=== PATIENT | female | born 1940 | race Caucasian/White ===

== ENCOUNTER 2016-04-24 03:20 | Emergency (ER) | payer OTHER ==
[~2016-04-24] VITALS: Ht 154.9 cm; Wt 86.0 kg
[~2016-04-24 03:20] MED LIST: AMBIEN10 MG PO; AMBIEN5 MG PO; AMITRIPTYLINE100 MG PO; APRESOLINE50 MG PO; ASCORBIC ACID500 M3 PO; ASPIR 8181 M1 PO; ASPIRIN81 M2 PO; Ambien PO; Ascorbic Acid,Ester- PO; BACTROBAN CREAM15 GM TP; BISACODYL SUPP10 MG PR; BRILINTA90 MG PO; CARVEDILOL12.5 MG PO; CARVEDILOL6.25 MG PO; CRANBERRY 12,61 EACH PO; CRANBERRY500 M2 PO; Colace PO; Coreg PO; Cozaar PO; Diabeta,Micronase PO; DuoNeb IH; ENDOCET 5-3251 EACH PO; Ecotrin PO; Elavil PO; FOLIC ACID1 MG PO; FUROSEMIDE40 MG PO; Flovent 44 mcg IH; GLUCOPHAGE500 MG PO; GLUCOVANCE 51 TABLET PO; Glucophage PO; HYDROCODON-ACE1 EAC7 PO; LANTUS 3 M100 UNITS/ SC; LEVEMIR FL100 UNIT/1 SC; LEVEMIR FL100 UNITS/ SC; LEVEMIR100 UNIT/2 SC; LEVOTHYROXINE50 MCG PO; LIPITOR20 MG PO; LOSARTAN-HCTZ1 EAC1 PO; Levothroid,Synthroid PO; MAG-OXIDE400 MG PO; MELATONIN3 MG PO; Maalox, Mylanta PO; NITROSTAT0.4 MG SL; NORCO 5/3251 TABLET PO; NORVASC5 MG PO; NOVOLOG 10100 UNITS/ SC; NOVOLOG PE100 UNITS/ SC; OMEPRAZOLE20 MG PO; ONE-A-DAY ESSE1 EAC1 PO; OXYCODONE HCL10 MG PO; OxyCONTIN PO; PERCOCET 5/31 TABLET PO; PLAVIX75 MG PO; PRAVACHOL40 MG PO; PRAVASTATIN SOD40 MG PO; PRILOSEC20 MG PO; Percocet 5/325,Endoc PO; Pravachol PO; PriLOSEC PO; Protonix PO; REGLAN10 MG PO; Reglan PO; SALINE FLUSH 5 M5 ML IV; SENNA-TIME S T1 EACH PO; SORE THROAT SP177 M1 MM; SPECTAZOLE TP; STOOL SOFTENER100 MG PO; STOOL SOFTENER50 MG PO; SYMBICORT60 INHALA1 IH; THERAGRAN1 TABLET PO; TYLENOL EXTRA500 MG PO; TYLENOL REGULA325 MG PO; Tylenol Extra Streng PO; VITAMIN C500 M1 PO; Vasotec PO; Zofran IV
[2016-04-24] MEDS ORDERED: ROXICODONE5 MG PO (04:22)
[2016-04-24] MEDS ORDERED: LETROZOLE2.5 MG PO (04:22)
[2016-04-24] MEDS ORDERED: TYLENOL PM1 CAPLET PO (04:22)
[2016-04-24 04:25] LABS: HEMATOCRIT 32.8 % (36.0-46.0); MCH 29.2 PG (29.0-34.0); MCHC 33.2 G/DL (30.0-36.0); MCV 87.9 FL (83-99); MEAN PLAT.VOLUME 10.9 uM^3 (9.5-12.4); PLATELET COUNT 159 K/uL (156-360); RED BLOOD COUNT 3.73 M/uL (3.80-5.20); WHITE BLOOD COUNT 8.3 K/uL (4.1-10.2)
[2016-04-24 04:36] LABS: CHLORIDE 102 mEq/L (99-109); POTASSIUM 4.7 mEq/L (3.7-5.4); SODIUM 135 mEq/L (136-147)
[2016-04-24 04:38] LABS: GLUCOSE 99 mg/dL (70-99)
[2016-04-24 04:40] LABS: ANION GAP 12 MEQ/L (2-14)
[2016-04-24 04:42] LABS: GFR ESTIMATE (CALCULATED) 51 mL/min/
[2016-04-24 04:43] LABS: UREA NITROGEN (BUN) 28 mg/dL (9-23)
[2016-04-24 05:21] VITALS: BP 145/63
[2016-04-24 05:48] LABS: POINT-OF-CARE METER ID UU13113747; POINT-OF-CARE USER ID HMLKAV
== END 2016-04-24 05:30 | disposition home or self-care (01) ==
LOC: EME → EDBD 03:20 → EME 03:20
PROVIDERS: Emergency Medicine
DX: T38.3X1A Poisoning by insulin and oral hypoglycemic [antidiabetic] drugs, accidental (unintentional), initial encounter (principal); E11.649 Type 2 diabetes mellitus with hypoglycemia without coma; E87.1 Hypo-osmolality and hyponatremia; E78.5 Hyperlipidemia, unspecified; I25.2 Old myocardial infarction; Z98.61 Coronary angioplasty status; J44.9 Chronic obstructive pulmonary disease, unspecified; Z89.512 Acquired absence of left leg below knee; Z87.891 Personal history of nicotine dependence; Z79.4 Long term (current) use of insulin; Z79.82 Long term (current) use of aspirin; Z79.84 Long term (current) use of oral hypoglycemic drugs
CPT/HCPCS: 80048; 82948; 85027; 99281; 99285

== ENCOUNTER 2016-05-05 13:19 | Emergency (ER) | payer OTHER ==
[~2016-05-05] VITALS: Ht 157.5 cm; Wt 84.0 kg
[~2016-05-05 13:19] MED LIST changes: +LETROZOLE2.5 MG PO; +ROXICODONE5 MG PO; +TYLENOL PM1 CAPLET PO
[2016-05-05 13:55] LABS: CHLORIDE 104 mEq/L (99-109); POTASSIUM 5.1 mEq/L (3.7-5.4); SODIUM 134 mEq/L (136-147)
[2016-05-05 13:57] LABS: GLUCOSE 91 mg/dL (70-99); HEMATOCRIT 30.3 % (36.0-46.0); MCH 29.2 PG (29.0-34.0); MCV 88.3 FL (83-99); MEAN PLAT.VOLUME 10.3 uM^3 (9.5-12.4); PLATELET COUNT 215 K/uL (156-360); RBC DIS.WIDTH-CV 13.3 % (11.8-14.6); RBC DIS.WIDTH-SD 41.1 % (39-53); RED BLOOD COUNT 3.43 M/uL (3.80-5.20); WHITE BLOOD COUNT 12.8 K/uL (4.1-10.2)
[2016-05-05 13:59] LABS: ANION GAP 8 MEQ/L (2-14)
[2016-05-05 14:01] LABS: GFR ESTIMATE (CALCULATED) 39 mL/min/
[2016-05-05 14:02] LABS: UREA NITROGEN (BUN) 36 mg/dL (9-23)
[2016-05-05 14:05] LABS: POINT-OF-CARE METER ID UU14100415
[2016-05-05 15:11] LABS: POINT-OF-CARE METER ID UU14100415
[2016-05-05 16:34] LABS: POINT-OF-CARE METER ID UU14100415
[2016-05-05] MEDS ORDERED: LEVOFLOXACIN750 MG PO (17:15)
[2016-05-05 17:21] VITALS: BP 105/86
== END 2016-05-05 17:28 | disposition home or self-care (01) ==
LOC: EME 13:19
PROVIDERS: Emergency Medicine
DX: E11.649 Type 2 diabetes mellitus with hypoglycemia without coma (principal); J18.9 Pneumonia, unspecified organism; E78.5 Hyperlipidemia, unspecified; I25.2 Old myocardial infarction; Z98.61 Coronary angioplasty status; Z79.82 Long term (current) use of aspirin; Z79.4 Long term (current) use of insulin; Z87.891 Personal history of nicotine dependence
CPT/HCPCS: 71020; 80048; 82948; 85027; 99281; 99285

== ENCOUNTER 2016-08-23 23:16 | Emergency (ER) | payer OTHER ==
[~2016-08-23] VITALS: Ht 157.5 cm; Wt 74.1 kg
[~2016-08-23 23:16] MED LIST changes: +LEVOFLOXACIN750 MG PO
[2016-08-23 23:50] LABS: EOSINOPHIL (%) 2.6 % (0-5); EOSINOPHIL COUNT 0.4 K/uL (0-0.3); HEMATOCRIT 33.3 % (36.0-46.0); IMMATURE GRANULOCYTE (%) 0.9 % (0.0-0.7); IMMATURE GRANULOCYTE COUNT 0.1 K/uL; INSTRUMENT ABS NEUTROPHIL CT 10.5 K/uL; MCH 26.8 PG (29.0-34.0); MCHC 30.9 G/DL (30.0-36.0); MCV 86.7 FL (83-99); MEAN PLAT.VOLUME 10.2 uM^3 (9.5-12.4); MONOCYTE (%) 4.7 % (3-12); MONOCYTE COUNT 0.6 K/uL (0-0.8); NEUTROPHIL (%) 76.8 % (45-76); NEUTROPHIL COUNT 10.5 K/uL (1.8-6.4); PLATELET COUNT 251 K/uL (156-360); RBC DIS.WIDTH-CV 13.9 % (11.8-14.6); RBC DIS.WIDTH-SD 44.3 % (39-53); RED BLOOD COUNT 3.84 M/uL (3.80-5.20); WHITE BLOOD COUNT 13.7 K/uL (4.1-10.2)
[2016-08-23 23:58] LABS: CHLORIDE 106 mEq/L (99-109); POTASSIUM 4.6 mEq/L (3.7-5.4); SODIUM 140 mEq/L (136-147)
[2016-08-24] LABS: GLUCOSE 152 mg/dL (70-99)
[2016-08-24 00:01] LABS: ANION GAP 10 MEQ/L (2-14)
[2016-08-24 00:04] LABS: GFR ESTIMATE (CALCULATED) 39 mL/min/; UREA NITROGEN (BUN) 31 mg/dL (9-23)
[2016-08-24 00:07] LABS: ADD MIUA? YES; BILIRUBIN NEGATIVE; BLOOD NEGATIVE; COLOR AMBER ((YELLOW)); GLUCOSE (STRIP) 50; KETONES NEGATIVE; LEUKOCYTES SMALL; NITRITE NEGATIVE; PROTEIN (STRIP) 30; SPECIFIC GRAVITY 1.023 (1.000-1.030); UROBILINOGEN 0.2 MG/DL (0.2-1.0)
[2016-08-24 00:11] LABS: TROP-I INTERPRETATION NEGATIVE; TROPONIN-I < 0.01 ng/mL (0.0-0.30)
[2016-08-24 00:22] LABS: BACTERIA 1+ /HPF; CASTS PRESENT /LPF; CRYSTALS PRESENT; EPITHELIAL CELLS 2+ /HPF; HYALINE CASTS 0-5 /LPF; MUCUS NONE SEEN /LPF; RED BLOOD CELLS NONE SEEN /HPF (0-5); UCUL ADDED? NO; WHITE BLOOD CELLS 0-5 /HPF (0-5)
[2016-08-24 00:23] LABS: AMORPHOUS URATES CRYSTALS 3+
[2016-08-24 00:44] VITALS: BP 108/57
== END 2016-08-24 00:47 | disposition home or self-care (01) ==
LOC: EME → EDBD 23:16 → EME 08-24 00:47
PROVIDERS: Emergency Medicine
DX: R55 Syncope and collapse (principal); E11.9 Type 2 diabetes mellitus without complications; I10 Essential (primary) hypertension; E78.5 Hyperlipidemia, unspecified; I25.2 Old myocardial infarction; Z89.512 Acquired absence of left leg below knee; Z95.5 Presence of coronary angioplasty implant and graft; Z88.2 Allergy status to sulfonamides; Z88.0 Allergy status to penicillin; Z87.891 Personal history of nicotine dependence; Z79.84 Long term (current) use of oral hypoglycemic drugs; K21.9 Gastro-esophageal reflux disease without esophagitis; F41.9 Anxiety disorder, unspecified
CPT/HCPCS: 80048; 81003; 84484; 85025; 93005; 99281; 99285; J7040

== ENCOUNTER 2016-11-23 00:40 | Inpatient (IN) | payer OTHER ==
[2016-11-23] VITALS (13 sets, daily range): BP systolic 131–178; BP diastolic 70–101
[~2016-11-23] VITALS: Ht 157.5 cm; Wt 76.0 kg
[~2016-11-23 00:40] MED LIST changes: +ACETAMINOPHEN1 EAC4 PO; -ASPIRIN81 M2 PO; -CRANBERRY 12,61 EACH PO; +CRANBERRY PLUS1 EAC1 PO; +LO-DOSE ASPIRIN81 M2 PO; -MELATONIN3 MG PO; +MELATONIN5 M1 PO; -TYLENOL PM1 CAPLET PO
[2016-11-23 01:01] LABS: POINT-OF-CARE METER ID UU13113747; POINT-OF-CARE USER ID 515033160
[2016-11-23 01:44] LABS: HEMATOCRIT 31.3 % (36.0-46.0); MCH 24.9 PG (29.0-34.0); MCV 80.3 FL (83-99); MEAN PLAT.VOLUME 11.2 uM^3 (9.5-12.4); NRBC (%) 0.2 /100 WBC (0-0); PLATELET COUNT 221 K/uL (156-360); RBC DIS.WIDTH-CV 14.2 % (11.8-14.6); RBC DIS.WIDTH-SD 41.4 % (39-53); WHITE BLOOD COUNT 8.1 K/uL (4.1-10.2)
[2016-11-23 01:56] LABS: CHLORIDE 99 mEq/L (99-109); POTASSIUM 4.4 mEq/L (3.7-5.4); SODIUM 135 mEq/L (136-147)
[2016-11-23 01:57] LABS: GLUCOSE 56 mg/dL (70-99)
[2016-11-23 01:59] LABS: ANION GAP 11 MEQ/L (2-14)
[2016-11-23 02:01] LABS: GFR ESTIMATE (CALCULATED) 57 mL/min/
[2016-11-23 02:02] LABS: UREA NITROGEN (BUN) 20 mg/dL (9-23)
[2016-11-23 02:40] LABS: POINT-OF-CARE METER ID UU13113747; POINT-OF-CARE USER ID HMLKAV
[2016-11-23 03:02] LABS: POINT-OF-CARE METER ID UU13113747; POINT-OF-CARE USER ID HMLKAV
[2016-11-23] MEDS ORDERED: AMBIEN10 MG PO (03:52)
[2016-11-23 04:32] LABS: POINT-OF-CARE METER ID UU13113747; POINT-OF-CARE USER ID HMLKAV
[2016-11-23 04:36] LABS: ADD MIUA? YES; BILIRUBIN NEGATIVE; BLOOD NEGATIVE; COLOR YELLOW ((YELLOW)); GLUCOSE (STRIP) 50; KETONES NEGATIVE; LEUKOCYTES MODERATE; NITRITE NEGATIVE; PROTEIN (STRIP) NEGATIVE; SPECIFIC GRAVITY 1.009 (1.000-1.030); UROBILINOGEN 0.2 MG/DL (0.2-1.0)
[2016-11-23 04:51] LABS: TROP-I INTERPRETATION NEGATIVE; TROPONIN-I 0.02 ng/mL (0.0-0.30)
[2016-11-23 04:55] LABS: BACTERIA RARE /HPF; EPITHELIAL CELLS RARE /HPF; MUCUS NONE SEEN /LPF; RED BLOOD CELLS 0-5 /HPF (0-5); UCUL ADDED? YES; WHITE BLOOD CELLS 20-30 /HPF (0-5)
[2016-11-23 06:21] LABS: POINT-OF-CARE METER ID UU13113747; POINT-OF-CARE USER ID HMLKAV
[2016-11-23 07:46] LABS: POINT-OF-CARE METER ID UU13113747
[2016-11-23 07:51] LABS: Estimated Average Glucose 160 mg/dL (70-123); HEMOGLOBIN A1c (GLYCOHEMOGLOB) 7.2 % HGB (Below 5.7)
[2016-11-23 08:40] LABS: POINT-OF-CARE METER ID UU14208751
[2016-11-23 09:42] LABS: METH RESISTANT S AUREUS PCR NEGATIVE (NEGATIVE); PROBE CHECK PASS; SPECIMEN PROCESSING CONTROL PASS
[2016-11-23 09:59] LABS: TROP-I INTERPRETATION NEGATIVE; TROPONIN-I 0.02 ng/mL (0.0-0.30)
[2016-11-23 10:41] LABS: POINT-OF-CARE METER ID UU13113748
[2016-11-23 12:51] LABS: POINT-OF-CARE METER ID UU14208751
[2016-11-23 14:37] LABS: POINT-OF-CARE METER ID UU14208751
[2016-11-23 15:07] LABS: TROP-I INTERPRETATION NEGATIVE; TROPONIN-I 0.01 ng/mL (0.0-0.30)
[2016-11-23 16:31] LABS: POINT-OF-CARE METER ID UU13113731
[2016-11-23 18:55] LABS: POINT-OF-CARE METER ID UU14208751; POINT-OF-CARE USER ID 606021424
[2016-11-23 20:17] LABS: POINT-OF-CARE METER ID UU13113748
[2016-11-23 22:09] LABS: POINT-OF-CARE METER ID UU13113748
[2016-11-24] VITALS (7 sets, daily range): BP systolic 112–141; BP diastolic 49–76
[2016-11-24 00:19] LABS: POINT-OF-CARE METER ID UU13113748
[2016-11-24 02:19] LABS: POINT-OF-CARE METER ID UU14174217
[2016-11-24 04:21] LABS: POINT-OF-CARE METER ID UU14174217
[2016-11-24 06:02] LABS: POINT-OF-CARE METER ID UU13113748
[2016-11-24 06:12] LABS: HEMATOCRIT 26.2 % (36.0-46.0); MCH 25.1 PG (29.0-34.0); MCHC 31.3 G/DL (30.0-36.0); MCV 80.1 FL (83-99); MEAN PLAT.VOLUME 11.4 uM^3 (9.5-12.4); PLATELET COUNT 219 K/uL (156-360); RBC DIS.WIDTH-SD 41.1 % (39-53); RED BLOOD COUNT 3.27 M/uL (3.80-5.20); WHITE BLOOD COUNT 7.3 K/uL (4.1-10.2)
[2016-11-24 06:33] LABS: ANION GAP 8 MEQ/L (2-14); CHLORIDE 101 MEQ/L (99-109); GFR ESTIMATE (CALCULATED) 51 mL/min/; GLUCOSE 150 mg/dL (70-99); POTASSIUM 4.9 MEQ/L (3.7-5.4); SAMPLE HEMOLYSIS CHECK 0; SAMPLE ICTERIC CHECK 0; SAMPLE LIPEMIA CHECK 0; SODIUM 135 MEQ/L (136-147); UREA NITROGEN (BUN) 20 mg/dL (9-23)
[2016-11-24 11:46] LABS: POINT-OF-CARE METER ID UU14208750
[2016-11-24 16:32] LABS: POINT-OF-CARE METER ID UU14162508
[2016-11-24 21:49] LABS: POINT-OF-CARE METER ID UU14208750
[2016-11-25] VITALS (8 sets, daily range): BP systolic 117–157; BP diastolic 57–78
[2016-11-25 06:19] LABS: POINT-OF-CARE METER ID UU14162508
[2016-11-25 06:28] LABS: HEMATOCRIT 26.2 % (36.0-46.0); MCH 24.9 PG (29.0-34.0); MCHC 30.9 G/DL (30.0-36.0); MCV 80.6 FL (83-99); MEAN PLAT.VOLUME 11.1 uM^3 (9.5-12.4); PLATELET COUNT 201 K/uL (156-360); RBC DIS.WIDTH-CV 14.2 % (11.8-14.6); RBC DIS.WIDTH-SD 41.5 % (39-53); RED BLOOD COUNT 3.25 M/uL (3.80-5.20); WHITE BLOOD COUNT 6.4 K/uL (4.1-10.2)
[2016-11-25 06:56] LABS: ANION GAP 7 MEQ/L (2-14); CHLORIDE 102 MEQ/L (99-109); GFR ESTIMATE (CALCULATED) 46 mL/min/; GLUCOSE 126 mg/dL (70-99); SAMPLE HEMOLYSIS CHECK 0; SAMPLE ICTERIC CHECK 0; SAMPLE LIPEMIA CHECK 0; SODIUM 138 MEQ/L (136-147); UREA NITROGEN (BUN) 23 mg/dL (9-23)
[2016-11-25 06:58] LABS: MAGNESIUM 2.4 mg/dl (1.3-2.7)
[2016-11-25 11:58] LABS: POINT-OF-CARE METER ID UU14162508
[2016-11-25 12:39] LABS: FERRITIN 22 NG/ML (10-291); IRON 34 MCG/DL (35-150); LACTATE DEHYDROGENASE 146 IU/L (20-246)
[2016-11-25 13:26] LABS: RETIC HGB EQUIVALENT 27.1 (28-36); RETICULOCYTE COUNT 1.8 % (0.5-1.8)
[2016-11-25 16:45] LABS: POINT-OF-CARE METER ID UU14162508
[2016-11-25 21:48] LABS: POINT-OF-CARE METER ID UU14208750
[2016-11-26 04:03] VITALS: BP 115/77
[2016-11-26 06:37] LABS: POINT-OF-CARE METER ID UU14208750
[2016-11-26 07:57] VITALS: BP 147/67
[2016-11-26 08:00] LABS: EOSINOPHIL (%) 5.6 % (0-5); EOSINOPHIL COUNT 0.4 K/uL (0-0.3); HEMATOCRIT 27.7 % (36.0-46.0); IMMATURE GRANULOCYTE (%) 0.6 % (0.0-0.7); IMMATURE GRANULOCYTE COUNT 0.1 K/uL; INSTRUMENT ABS NEUTROPHIL CT 4.5 K/uL; MCH 25.8 PG (29.0-34.0); MCHC 31.8 G/DL (30.0-36.0); MCV 81.2 FL (83-99); MEAN PLAT.VOLUME 11.3 uM^3 (9.5-12.4); MONOCYTE (%) 10.7 % (3-12); MONOCYTE COUNT 0.9 K/uL (0-0.8); NEUTROPHIL (%) 57.1 % (45-76); NEUTROPHIL COUNT 4.5 K/uL (1.8-6.4); NRBC (%) 0.5 /100 WBC (0-0); PLATELET COUNT 209 K/uL (156-360); RBC DIS.WIDTH-CV 14.3 % (11.8-14.6); RBC DIS.WIDTH-SD 42.3 % (39-53); RED BLOOD COUNT 3.41 M/uL (3.80-5.20); WHITE BLOOD COUNT 7.9 K/uL (4.1-10.2)
[2016-11-26 08:31] LABS: ANION GAP 8 MEQ/L (2-14); CHLORIDE 99 MEQ/L (99-109); GFR ESTIMATE (CALCULATED) 46 mL/min/; GLUCOSE 158 mg/dL (70-99); POTASSIUM 5.2 MEQ/L (3.7-5.4); SAMPLE HEMOLYSIS CHECK 0; SAMPLE ICTERIC CHECK 0; SAMPLE LIPEMIA CHECK 0; SODIUM 135 MEQ/L (136-147); UREA NITROGEN (BUN) 22 mg/dL (9-23)
[2016-11-26 11:05] VITALS: BP 118/58
[2016-11-26] MEDS ORDERED: FERROUS SULFAT325 MG PO (11:20)
[2016-11-26] MEDS ORDERED: CYANOCOBALAM1000 MCG PO (11:20)
[2016-11-26 12:08] LABS: POINT-OF-CARE METER ID UU14208750
== END 2016-11-26 14:29 | disposition home health service (06) | DRG 639 ==
LOC: EME → EDBD 00:40 → EDOF 03:10 → 4WEST 03:10 → ENRESERV 03:18 → 4WEST 07:59 → ENRESERV 11-24 07:59 → CANRESERV 11-24 07:59 → ENRESERV 11-24 09:01 → 2EAST 11-24 11:13
PROVIDERS: Emergency Medicine; Internal Medicine; Physician Assistant Medical
DX: E11.649 Type 2 diabetes mellitus with hypoglycemia without coma (principal); R94.31 Abnormal electrocardiogram [ECG] [EKG]; D63.8 Anemia in other chronic diseases classified elsewhere; E11.319 Type 2 diabetes mellitus with unspecified diabetic retinopathy without macular edema; E11.40 Type 2 diabetes mellitus with diabetic neuropathy, unspecified; I10 Essential (primary) hypertension; I25.10 Atherosclerotic heart disease of native coronary artery without angina pectoris; I25.5 Ischemic cardiomyopathy; R26.2 Difficulty in walking, not elsewhere classified; K21.9 Gastro-esophageal reflux disease without esophagitis; E78.5 Hyperlipidemia, unspecified; E03.9 Hypothyroidism, unspecified; I73.9 Peripheral vascular disease, unspecified; E66.9 Obesity, unspecified; Z68.30 Body mass index [BMI] 30.0-30.9, adult; I25.2 Old myocardial infarction; Z79.4 Long term (current) use of insulin; Z79.84 Long term (current) use of oral hypoglycemic drugs; Z79.51 Long term (current) use of inhaled steroids; Z79.02 Long term (current) use of antithrombotics/antiplatelets; Z79.82 Long term (current) use of aspirin; Z87.891 Personal history of nicotine dependence; Z85.3 Personal history of malignant neoplasm of breast; Z89.512 Acquired absence of left leg below knee; Z95.5 Presence of coronary angioplasty implant and graft; Z82.49 Family history of ischemic heart disease and other diseases of the circulatory system; F41.9 Anxiety disorder, unspecified; Z88.0 Allergy status to penicillin; Z88.2 Allergy status to sulfonamides; Z88.1 Allergy status to other antibiotic agents
CPT/HCPCS: 80048; 81003; 82607; 82728; 82746; 82948; 83036; 83540; 83615; 83735; 84466; 84484; 85025; 85027; 85045; 87086; 87641; 93005; 93306; 94640; 94640 76; 99281; 99284; J1644; J1815; J7042